=== PATIENT | female | born 1975 | race Caucasian/White ===

== ENCOUNTER 2023-05-16 10:15 | Inpatient (IN) | payer OTHER ==
[~2023-05-16] VITALS: Ht 167.6 cm; Wt 93.0 kg
[~2023-05-16 10:15] MED LIST: CODE1TAB37 PO; Mylicon 125MG PO
[2023-05-23 07:35] LABS: HEMATOCRIT 39.6 % (36.0-45.00); HEMOGLOBIN 13.5 g/dL (12.0-15.00); MEAN CELL VOLUME 88.6 fL (80.00-100.00); MEAN CORPUSCULAR HEMOGLOBIN 30.2 pg (27.00-32.0); MEAN CORPUSCULAR HGB CONC 34.1 g/dl (32.0-36.0); PLATELET COUNT 225 K/uL (150-450); RED BLOOD COUNT 4.47 M/uL (4.00-6.00); RED CELL DISTRIBUTION WIDTH 13.5 % (11.5-14.5)
[2023-05-23 08:05] LABS: CALCIUM 9.8 mg/dL (8.5-10.1); CREATININE SERUM 0.88 mg/dL (0.55-1.02); GFR 68.29; POTASSIUM 4.25 mEq/L (3.5-5.1)
== END 2023-05-23 13:22 | disposition home or self-care (01) | DRG 30 ==
LOC: O/R 05-22 05:10 → SURG 05-22 08:00
PROVIDERS: ADMIT Neurological Surgery; ATTEND Neurological Surgery
PROC: 07DS0ZZ Extraction of Vertebral Bone Marrow, Open Approach (ICD-10-PCS; 2023-05-22)
PROC: 0RT30ZZ Resection of Cervical Vertebral Disc, Open Approach (ICD-10-PCS; 2023-05-22)
PROC: 0RG10A0 Fusion of Cervical Vertebral Joint with Interbody Fusion Device, Anterior Approach, Anterior Column, Open Approach (ICD-10-PCS; principal; 2023-05-22 08:00)
DX: M54.12 Radiculopathy, cervical region (principal); M48.02 Spinal stenosis, cervical region; Z20.822 Contact with and (suspected) exposure to COVID-19